=== PATIENT | female | born 1990 | race Caucasian/White ===

== ENCOUNTER 2020-12-16 01:46 | Observation (INO) | payer MEDICAID | END 2020-12-16 13:00 | disposition home or self-care (01) | LOC: SPU 01:46 | PROVIDERS: ADMIT Specialist; ATTEND Specialist | DX: O46.93 Antepartum hemorrhage, unspecified, third trimester (principal); Z3A.35 35 weeks gestation of pregnancy | CPT/HCPCS: 76805; 82962; G0378 ==